=== PATIENT | male | born 1955 | race Caucasian/White ===

== ENCOUNTER 2018-05-06 18:25 | Emergency (ER) | payer MEDICAID, OTHER ==
[~2018-05-06] VITALS: Ht 198.1 cm; Wt 117.0 kg
[2018-05-06] MEDS ORDERED: NS IV 1000 ML 1,000 ML ONE (18:36)
[2018-05-06] MEDS ORDERED: diphenhydrAMINE 50 MG/ML INJ (BENADRYL) IV STA (18:57)
[2018-05-06] MEDS ORDERED: FAMOTIDINE 20 MG (PEPCID) TABLET PO STA (18:57)
--- NOTE | 2018-05-06 18:57 | ED Integumentary General ---
General Chief Complaint: Bite-Animal/Human/Insect Stated Complaint: STUNG BY HORNET,CANT CONCENTRATE,NAUSEA,DIABETIC History of Present Illness Date Seen by Provider: May 06, 2018 Time Seen by Provider: 18:40 Initial Comments 62 -year-old male presents after being stung 3-5 times by hornets approx 3-4 hours ago. He did take a Claritin prior to arrival. They applied a baking soda paste to the sting site. The patient reports mild nausea, no vomiting, blurry vision, and generalized weakness. He was outside most of the day and had approximately 2 glasses of water throughout that time. He denies previous history of hornets things for allergic reaction to insect bites. Timing/Duration: this afternoon Severity: mild Location: face, torso, hands Possible Cause: insect sting (hornets) Associated Symptoms: flushing, malaise, tingling Allergies and Home Medications Allergies Coded Allergies: Sulfa (Sulfonamide Antibiotics) (Verified Allergy, Unknown, 05/06/18) Penicillins (Verified Adverse Reaction, Unknown, 05/06/18) Patient Home Medication List Home Medication List Reviewed: Yes Constitutional: see HPI, dizziness, malaise, weakness EENTM: blurred vision Respiratory: no symptoms reported, see HPI; No dyspnea on exertion, No short of breath, No wheezing Cardiovascular: no symptoms reported, see HPI Gastrointestinal: see HPI; No abdominal pain, No loss of appetite; nausea (mild , patient denies need for medication.); No vomiting Musculoskeletal: no symptoms reported, see HPI All Other Systems Reviewed Negative Unless Noted: Yes Past Abkehim-Nmkkrq-Sduurz Hx Past Med/Social Hx: Reviewed Nursing Past Med/Soc Hx Patient Social History Alcohol Use: Denies Use Recreational Drug Use: No Smoking Status: Never a Smoker Recent Foreign Travel: No Contact w/Someone Who Travel: No Recent Hopitalizations: No Physical Abuse: No Sexual Abuse: No Seasonal Allergies Seasonal Allergies: No Past Medical History Surgeries: No Respiratory: No Cardiac: No Neurological: No Genitourinary: No Gastrointestinal: No Musculoskeletal: No Endocrine: Yes Diabetes, Non-Insulin dep Are Your Blood Sugars Over 250: No Nursing Suicide Risk Score: 0 Integumentary: No Physical Exam Vital Signs Vital Signs - First Documented 05/06/18 18:46 Temp 97.4 Pulse 89 Resp 20 B/P (MAP) 173/92 (119) Pulse Ox 96 Capillary Refill : General Appearance: WD/WN, no apparent distress HEENT: PERRL/EOMI, normal ENT inspection, TMs normal, pharynx normal Neck: non-tender, full range of motion, supple, normal inspection Cardiovascular: normal peripheral pulses, regular rate, rhythm, no murmur Respiratory: chest non-tender, lungs clear, normal breath sounds, no respiratory distress, no accessory muscle use Gastrointestinal: normal bowel sounds, non tender, soft; No guarding, No rebound, No tenderness Back: normal inspection, no CVA tenderness, no vertebral tenderness Extremities: normal range of motion, non-tender, normal inspection, no pedal edema, normal capillary refill Neurologic/Psychiatric: pyridine recovery operator II-XII nml as tested, no motor/sensory deficits, alert, normal mood/affect, oriented x 3; No facial droop, No motor weakness, No sensory deficit Skin: normal color, warm/dry, other (small puncture site noted to left thumb and lateral to left eye. No erythema, puritis, or rash.) Lymphatic: no adenopathy Progress/Results/Core Measures Results/Orders Lab Results Laboratory Tests Test 05/06/18 18:35 05/06/18 18:39 Range/Units White Blood Count 5.8 4.3-11.0 10^3/uL Red Blood Count 5.18 4.35-5.85 10^6/uL Hemoglobin 14.2 13.3-17.7 G/DL Hematocrit 42 40-54 % Mean Corpuscular Volume 81 80-99 FL Mean Corpuscular Hemoglobin 27 25-34 PG Mean Corpuscular Hemoglobin Concent 34 32-36 G/DL Red Cell Distribution Width 17.6 H 10.0-14.5 % Platelet Count 227 130-400 10^3/uL Mean Platelet Volume 9.9 7.4-10.4 FL Neutrophils (%) (Auto) 49 42-75 % Lymphocytes (%) (Auto) 36 12-44 % Monocytes (%) (Auto) 13 H 0-12 % Eosinophils (%) (Auto) 1 0-10 % Basophils (%) (Auto) 1 0-10 % Neutrophils # (Auto) 2.8 1.8-7.8 X 10^3 Lymphocytes # (Auto) 2.1 1.0-4.0 X 10^3 Monocytes # (Auto) 0.8 0.0-1.0 X 10^3 Eosinophils # (Auto) 0.1 0.0-0.3 10^3/uL Basophils # (Auto) 0.0 0.0-0.1 10^3/uL Sodium Level 135 135-145 MMOL/L Potassium Level 4.0 3.6-5.0 MMOL/L Chloride Level 103 98-107 MMOL/L Carbon Dioxide Level 23 21-32 MMOL/L Anion Gap 9 5-14 MMOL/L Blood Urea Nitrogen 14 7-18 MG/DL Creatinine 0.83 0.60-1.30 MG/DL Estimat Glomerular Filtration Rate > 60 BUN/Creatinine Ratio 17 Glucose Level 210 H 70-105 MG/DL Calcium Level 9.9 8.5-10.1 MG/DL Corrected Calcium 9.7 8.5-10.1 MG/DL Total Bilirubin 0.8 0.1-1.0 MG/DL Aspartate Amino Transf (AST/SGOT) 31 5-34 U/L Alanine Aminotransferase (ALT/SGPT) 28 0-55 U/L Alkaline Phosphatase 76 40-136 U/L Troponin I < 0.30 <0.30 NG/ML C-Reactive Protein High Sensitivity 0.14 0.00-0.50 MG/DL Total Protein 7.7 6.4-8.2 GM/DL Albumin 4.3 3.2-4.5 GM/DL Glucometer 189 H 70-110 MG/DL My Orders Orders - JOSÉ MIGUEL PITTS Accucheck Stat ONCE (05/06/18 18:32) Cbc With Automated Diff (05/06/18 18:52) Comprehensive Metabolic Panel (05/06/18 18:52) Hs C Reactive Protein (05/06/18 18:52) Troponin I (05/06/18 18:52) Diphenhydramine Injection (Benadryl Inje (05/06/18 18:57) Famotidine Tablet (Pepcid Tablet) (05/06/18 18:57) Loratadine Tablet (Claritin Tablet) (05/06/18 19:00) Medications Given in ED Current Medications Medications Dose Ordered Sig/Jacob Route Start Time Stop Time Status Last Admin Dose Admin Sodium Chloride 1,000 ml @ ud STK-MED ONCE .ROUTE 05/06/18 18:36 8/18/18 18:39 DC 05/06/18 18:40 1,000 MLS/HR Vital Signs/I&O 05/06/18 18:46 Temp 97.4 Pulse 89 Resp 20 B/P (MAP) 173/92 (119) Pulse Ox 96 FSBG Bedside Testing Finger Stick Blood Glucose: 189 Blood Glucose Action Taken: RN notified Progress Progress Note : Time: 18:40 Progress Note Initial evaluation completed, patient no acute distress. Labs obtained. Will administer diphenhydramine 50 mg IV and Pepcid 20 mg by mouth. Normal saline 1 L IV fluid bolus. Discussed the patient's assessment and treatment plan with Dr. Panda, he agreed with this plan of care. 1914 labs reviewed with patient, all essentially normal. Patient unchanged, vision slightly blurry. No respiratory distress. Sting site unchanged. 1929 patient reports feeling better. Discharge instructions and return precautions reviewed with the patient and his . All questions answered. Initial ECG Impression Date: May 06, 2018 Initial ECG Impression Time: 18:44 Initial ECG Rate: 91 Initial ECG Rhythm: Normal Sinus Initial ECG Intervals: Normal Initial ECG Intervals First-degree AV block. VA 208, QRS T 92, QTC 364, QTc 440. [place] P 27 QRS 47 T10. Initial ECG Impression: Normal, 1st Degree AV Block Initial ECG Comparisson: No Previous ECG Available Comment EKG reviewed with Dr. Panda, concurred with interpretation. Departure Impression Primary Impression: Sting, hornet Qualified Codes: T63.451A - Toxic effect of venom of hornets, accidental ( unintentional), initial encounter Disposition: 01 HOME, SELF-CARE Condition: Improved Departure-Patient Inst. Decision time for Depature: 19:30 Referrals: NO,LOCAL PHYSICIAN (PCP/Family) Primary Care Physician Patient Instructions: Insect Bites and Stings (DC) Add. Discharge Instructions: Increase water intake, one bottle every 2 hours while awake. Take Claritin, 10 mg 1 tablet daily. Take Pepcid 20 mg one tablet twice daily. If tolerating Benadryl take 25 mg every 8 hours, if this makes you to drowsy you may take 50 mg at bedtime. Take these medications for the next 2-3 days, if symptoms are not improving or worsen return to your primary care provider. You may put ice packs on the site of the hornet stings. Return to emergency department if symptoms worsen, feeling that you're lips or tongue or swelling, feeling that her throat is tightening reported difficulty breathing, rash that is progressively getting worse, or new problems. All discharge instructions reviewed with patient and/or family. Voiced understanding. JOSÉ MIGUEL PITTS May 06, 2018 18:56
[2018-05-06] MEDS ORDERED: LORATADINE (CLARITIN) 10 MG TAB PO ONE (19:00)
[2018-05-06 19:02] LABS: BASOPHILS % (AUTO) 1 % (0-10); EOSINOPHILS # (AUTO) 0.1 10^3/uL (0.0-0.3); EOSINOPHILS % (AUTO) 1 % (0-10); HEMATOCRIT 42 % (40-54); HEMOGLOBIN 14.2 G/DL (13.3-17.7); LYMPHOCYTES # (AUTO) 2.1 X 10^3 (1.0-4.0); LYMPHOCYTES % (AUTO) 36 % (12-44); MEAN CORPUSCULAR HEMOGLOBIN 27 PG (25-34); MEAN CORPUSCULAR HGB CONC 34 G/DL (32-36); MEAN CORPUSCULAR VOLUME 81 FL (80-99); MEAN PLATELET VOLUME 9.9 FL (7.4-10.4); MONOCYTES # (AUTO) 0.8 X 10^3 (0.0-1.0); MONOCYTES % (AUTO) 13 % (0-12); NEUTROPHILS # (AUTO) 2.8 X 10^3 (1.8-7.8); NEUTROPHILS % (AUTO) 49 % (42-75); PLATELET COUNT 227 10^3/uL (130-400); RED BLOOD COUNT 5.18 10^6/uL (4.35-5.85); RED CELL DISTRIBUTION WIDTH 17.6 % (10.0-14.5); WHITE BLOOD COUNT 5.8 10^3/uL (4.3-11.0)
[2018-05-06 19:16] LABS: ALANINE AMINOTRANSFERASE 28 U/L (0-55); ALBUMIN 4.3 GM/DL (3.2-4.5); ALKALINE PHOSPHATASE 76 U/L (40-136); BILIRUBIN,TOTAL 0.8 MG/DL (0.1-1.0); BUN/CREATININE RATIO 17; CALCIUM 9.9 MG/DL (8.5-10.1); CARBON DIOXIDE 23 MMOL/L (21-32); CHLORIDE 103 MMOL/L (98-107); CREATININE SERUM 0.83 MG/DL (0.60-1.30); GFR ESTIMATED > 60; GLUCOSE 210 MG/DL (70-105); SODIUM 135 MMOL/L (135-145); TOTAL PROTEIN 7.7 GM/DL (6.4-8.2)
[2018-05-06 20:01] VITALS: BP 145/81
== END 2018-05-06 20:01 | disposition home or self-care (01) ==
LOC: ER 18:28
DX: T63.451A Toxic effect of venom of hornets, accidental (unintentional), initial encounter (principal); E11.9 Type 2 diabetes mellitus without complications; Z88.2 Allergy status to sulfonamides; Z88.0 Allergy status to penicillin
CPT/HCPCS: 36415; 80053; 82962; 84484; 85025; 86141; 93005